=== PATIENT | male | born 1990 | race African-American/Black ===

== ENCOUNTER 2021-07-01 16:52 | Emergency (ER) | payer OTHER, SELFPAY ==
[2021-07-01] VITALS (9 sets, daily range): BP systolic 144–152; BP diastolic 85–108; PULSE 65–98; RESP 14; TEMP 36.8; O2SAT 99–100
--- NOTE | ~2021-07-01 | XR_ITS ---
EXAMINATION: XR chest 2V DATE: 07/01/2021 17:26 INDICATION: Shortness of breath and midsternal chest pain, asthma TECHNIQUE: PA and lateral views of the chest are obtained. COMPARISON: None available FINDINGS: The lungs are free of acute opacities. There is no pleural effusion or pneumothorax. The ca rdiomediastinal silhouette is normal. The visualized bones and soft tissues are unremarkable. IMPRESSION: 1. No acute cardiopulmonary abnormality. Reviewed, dictated and finalized at location A.
--- NOTE | 2021-07-01 17:09 | ECG_ITS ---
Measurements Intervals [place] Rate: 89 P: 77 AL: 127 QRS: 72 QRSD: 79 T: 59 QT: 327 QTc: 400 Interpretive Statements SINUS RHYTHM WITH SINUS ARRHYTHMIA INCOMPLETE RIGHT BUNDLE BRANCH BLOCK ST ELEVATION IN ANTEROLAT/INF LEADS, PROBABLY EARLY REPOLARIZATION BORDERLINE ECG Electronically Signed On 07-01-2021 19:47:49 CDT by Florencio Valdovinos D.O.
[2021-07-01 17:31] LABS: Basophils Percent Auto 0.4 % (0.2-1.2); Eosinophils Absolute Auto 0.4 K/mm3 (0-0.3); Eosinophils Percent Auto 6.7 % (0-4.4); Hematocrit 44.8 % (42.0-52.0); Hemoglobin 15.9 g/dL (14.0-18.0); Immature Granulocyte Absolute 0.02 K/mm3 (0.00-0.031); Immature Granulocyte Percent A 0.4 % (0-0.5); Lymphocytes Absolute Auto 1.16 K/mm3 (0.9-3.2); Lymphocytes Percent Auto 22.1 % (18.3-44.2); Mean Corpuscular HGB Conc 35.5 g/dl (32-36); Mean Corpuscular Hemoglobin 32.9 pg (26-34); Mean Corpuscular Volume 92.6 fl (80-100); Monocytes Absolute Auto 0.7 K/mm3 (0.1-0.6); Monocytes Percent Auto 12.9 % (2.6-8.5); Neutrophils Percent Auto 57.5 % (45.5-73.1); Platelet Count Result 160 k/mm3 (150-375); Red Blood Count 4.84 M/mm3 (4.6-6.20); Red Cell Distribution Width 10.9 % (11.5-14.5); White Blood Count 5.3 K/mm3 (4.5-10.0)
[2021-07-01 17:42] LABS: Anion Gap 8 mmol/L (8-16); Blood Urea Nitrogen 13 mg/dL (9-20); Calcium 9.3 mg/dL (8.4-10.2); Carbon Dioxide 29 mmol/L (22-30); Chloride 102 mmol/L (98-107); Estimated CRCL calculation 87 ml/min; Estimated Glomerular Filt Rate > 60; Glucose 105 mg/dL (65-110); Potassium 4.4 mmol/L (3.4-5.0); Sodium 139 mmol/L (137-145)
[2021-07-01 17:54] LABS: Troponin I < 0.012 ng/mL (0.000-0.034)
--- NOTE | 2021-07-01 19:10 | ED.ASTHMA ---
HPI - Asthma General Chief Complaint: Asthma Stated Complaint: asthma Time Seen by Provider: 07/01/21 19:02 Source: RN notes reviewed History of Present Illness HPI Narrative: Patient presents emergency department from home for asthma. Patient states he has history of asthma is been using inhaler at home but continued to have wheezing and feeling short of breath. He states that symptoms of worsened over the past 2 days states the cough this been nonproductive he denies any fevers or chills does note some feeling of chest tightness with his wheezing denies any abdominal pain nausea or vomiting denies any tobacco use Related Data Allergies Allergy/AdvReac Type Severity Reaction Status Date / Time No Known Allergies Allergy Unverified 07/19/18 04:43 Review of Systems Review of Systems: Gen.: Denies fevers or chills ENT: Denies congestion Respiratory: See HPI CV: Reports feeling of chest tightness GI: Denies abdominal pain nausea, emesis or diarrhea Musculoskeletal: Denies back pain or muscle pain Neuro: Denies numbness, tingling, weakness or focal weakness Skin: Denies rash Except as documented, all other systems reviewed and negative [facility] Past Medical History Medical History (Updated 07/01/21 @ 21:06 by Suman Diaz DO) Asthma Social History Social History (Updated 07/01/21 @ 19:11 by Suman Diaz DO) Smoking status: Never smoker Exam Narrative: APPEARANCE: No acute distress, nontoxic, resting in bed EYES: EOMI HEENT: Normocephalic, atraumatic, OMM RESPIRATORY: No respiratory distress wheezing throughout the bilateral lung jacobsen no rhonchi or rales CARDIOVASCULAR: Regular rate and rhythm without murmurs rubs or gallops. ABDOMINAL: Soft, nontender, nondistended, no rebound or guarding MUSCULOSKELETAl: Moves all extremities. No clubbing, cyanosis or edema. NEURO: Awake and alert. Following commands, speech normal, no focal deficits SKIN:: Warm, dry. No rashes lesions or abrasions PSYCHIATRIC: Normal affect/mood, Course Course Emergency Course: Patient states he is feeling much better following breathing treatments repeat lung exam is clear to auscultation bilaterally Discussed with patient results of workup and diagnosis. Discussed need for follow-up with primary care, proper use of medication, and reasons to return to the emergency department. Patient understands and agrees to current treatment plan Vital Signs Vital signs: Vital Signs Temperature 98.2 F 07/01/21 17:07 Pulse Rate 81 07/01/21 17:07 Respiratory Rate 14 07/01/21 17:07 Blood Pressure 144/108 H 07/01/21 17:07 Pulse Oximetry 99 07/01/21 17:07 Temperature 98.2 F 07/01/21 19:29 Pulse Rate 81 07/01/21 20:58 Respiratory Rate 14 07/01/21 19:29 Blood Pressure 144/108 H 07/01/21 19:29 Pulse Oximetry 99 07/01/21 19:29 MDM - Asthma Lab Data Result diagrams: 07/01/21 17:19 07/01/21 17:18 Labs: Lab Results 07/01/21 07/01/21 Range/Units 17:18 17:19 WBC 5.3 (4.5-10.0) K/mm3 RBC 4.84 (4.6-6.20) M/mm3 Hgb 15.9 (14.0-18.0) g/dL Hct 44.8 (42.0-52.0) % MCV 92.6 (80-100) fl MCH 32.9 (26-34) pg MCHC 35.5 (32-36) g/dl RDW 10.9 L (11.5-14.5) % Plt Count 160 (150-375) k/mm3 MPV 11.0 H (7.4-10.4) fl Immature Gran % (Auto) 0.4 (0-0.5) % Neut % (Auto) 57.5 (45.5-73.1) % Lymph % (Auto) 22.1 (18.3-44.2) % [place] % (Auto) 12.9 H (2.6-8.5) % Eos % (Auto) 6.7 H (0-4.4) % Baso % (Auto) 0.4 (0.2-1.2) % Lymph # (Auto) 1.16 (0.9-3.2) K/mm3 [place] # (Auto) 0.7 H (0.1-0.6) K/mm3 Eos # (Auto) 0.4 H (0-0.3) K/mm3 Baso # (Auto) 0.0 (0.0-0.1) K/mm3 Abs Immat Gran (auto) 0.02 (0.00-0.031) K/mm3 Absolute Neuts (auto) 3.0 (1.3-6.7) K/mm3 Absolute Nucleated RBC 0.0 (0.0-0.012) K/mm3 Nucleated RBC % 0.0 (0.0-0.2) % Sodium 139 (137-145) mmol/L Potassium 4.4 (3.4-5.0) mmol/L Chloride 102 (98-107)
[2021-07-01] MEDS: predniSONE 20 MG TABLET 60 MG PO (19:16)
[2021-07-01] MEDS: IPRATROPIUM BR 0.02% INH SOLN 0.5 MG/2.5 ML VIAL INHALATION ×3 (19:23→20:52)
[2021-07-01] MEDS: ALBUTEROL SULFATE NEB 2.5 MG/0.5 ML INH 5 MG INHALATION ×3 (19:23→20:51)
== END 2021-07-01 21:36 | disposition home or self-care (01) ==
PROVIDERS: Emergency Medicine; Emergency Provider Emergency Medicine; PCP Internal Medicine
DX: J45.901 Unspecified asthma with (acute) exacerbation (principal); I45.10 Unspecified right bundle-branch block; R94.31 Abnormal electrocardiogram [ECG] [EKG]
CPT/HCPCS: 36415; 71046; 80048; 84484; 85025; 93005; 94640; 99285; J7512

== ENCOUNTER 2022-06-09 12:04 | Emergency (ER) | payer OTHER, SELFPAY ==
[2022-06-09 12:09] VITALS: BP 129/84; PULSE 77; RESP 16; TEMP 36.7
[2022-06-09] MEDS: ALBUTEROL SULFATE NEB 2.5 MG/3 ML INH 15 MG INHALATION (12:55)
[2022-06-09] MEDS: IPRATROPIUM BR 0.02% INH SOLN 0.5 MG/2.5 ML VIAL 1.5 MG INHALATION (12:55)
[2022-06-09 13:00] VITALS: PULSE 74; RESP 20
[2022-06-09] MEDS: predniSONE 20 MG TABLET 60 MG PO (13:01)
[2022-06-09 13:56] VITALS: BP 138/84; PULSE 67; RESP 18; O2SAT 100
--- NOTE | 2022-06-09 14:02 | ED.SOB ---
HPI - SOB/Dyspnea General Chief Complaint: Shortness of Breath/Dyspnea Stated Complaint: sob, asthma Time Seen by Provider: 06/09/22 12:28 History of Present Illness HPI Narrative: Patient is a 31-year-old male who presents ER with shortness of breath. Began last night worsening throughout the day. Has history of asthma feels like he is having exacerbation. He can hear wheezing. He has been using his inhaler but has run out. No fevers chills or sweats. No runny nose or sore throat or cough. Feels like it is weather change that is affecting him.. Related Data Allergies Allergy/AdvReac Type Severity Reaction Status Date / Time No Known Allergies Allergy Verified 06/09/22 12:18 [facility] Past Medical History Medical History (Updated 06/09/22 @ 14:04 by Aba Barron MD) Asthma Surgical History Surgical History (Updated 06/09/22 @ 14:04 by Aba Barron MD) No pertinent past surgical history Social History Social History (Updated 07/01/21 @ 19:11 by Suman Diaz DO) Smoking status: Never smoker Exam Narrative: GENERAL: Well-appearing, well-nourished, and in no acute distress. HEAD: Normocephalic, atraumatic. CHEST: Diffuse expiratory and inspiratory wheezing. No respiratory distress. HEART: Regular rate and rhythm. Normal peripheral pulses. EXTREMITIES: Normal range of motion. No edema. SKIN: Warm, dry, no rash. NEURO: No focal deficits. Alert and oriented x3. PSYCH: Normal mood and affect. Course Course Emergency Course: Lungs clear and patient feels improved after hour-long nebulizer treatment. Discharged with refill of medication and steroids. Vital Signs Vital signs: Vital Signs Temperature 98.0 F 06/09/22 12:09 Pulse Rate 77 06/09/22 12:09 Respiratory Rate 16 06/09/22 12:09 Blood Pressure 129/84 06/09/22 12:09 Oxygen Delivery Room Air 06/09/22 12:09 Temperature 98.0 F 06/09/22 12:09 Pulse Rate 67 06/09/22 13:56 Respiratory Rate 18 06/09/22 13:56 Blood Pressure 138/84 06/09/22 13:56 Pulse Oximetry 100 06/09/22 13:56 Oxygen Delivery Room Air 06/09/22 12:09 Discharge Plan Discharge Clinical Impression: Asthma with exacerbation Patient Disposition: Home, Self-Care Condition: Stable Instructions: Asthma (ED) Additional Instructions: Return the ER if you have worsening shortness of breath, you cannot keep down food or water, you have fever over 100.4 ?F, you have additional concerns Prescriptions: New prednisone 50 mg tablet 50 mg PO DAILY Qty: 6 0RF albuterol sulfate 90 mcg/actuation HFA aerosol inhaler 4 puff INHALATION QID PRN (Reason: shortness of breath or wheezing) Qty: 8 0RF No Action prednisone 20 mg tablet 20 mg PO BID Qty: 8 0RF albuterol sulfate 90 mcg/actuation HFA aerosol inhaler 2 puff INHALATION QID PRN (Reason: shortness of breath or wheezing) Qty: 6.7 0RF Follow-up/Referrals: Karen,Josue Pearl MD [Primary Care Provider] - 1 Week
[2022-06-09 14:09] VITALS: BP 129/76; PULSE 74; RESP 18; O2SAT 98
== END 2022-06-09 14:10 | disposition home or self-care (01) ==
PROVIDERS: Emergency Provider Emergency Medicine; PCP Internal Medicine
DX: J45.901 Unspecified asthma with (acute) exacerbation (principal)
CPT/HCPCS: 94640; 99283; J7512

== ENCOUNTER 2022-07-12 23:23 | Emergency (ER) | payer OTHER, SELFPAY ==
--- NOTE | ~2022-07-12 | XR_ITS ---
EXAMINATION: XR chest 2V DATE: 07/13/2022 02:19 INDICATION: Shortness of breath. Wheezing. TECHNIQUE: Frontal and lateral views of the chest were obtained. COMPARISON: Chest 2 views 07/01/2021 FINDINGS: The chest demonstrates clear lungs without pneumonia, pleural effusion, or pneumothorax. Th e heart size is normal. IMPRESSION: 1. No acute cardiopulmonary disease. Reviewed, dictated and finalized at location A.
[2022-07-12 23:30] VITALS: BP 148/91; PULSE 72; RESP 20; TEMP 36.3; O2SAT 99
[2022-07-13] VITALS (10 sets, daily range): BP systolic 131–141; BP diastolic 87–94; PULSE 55–87; RESP 12–19; O2SAT 96–100
--- NOTE | 2022-07-13 01:44 | ED.SOB ---
HPI - SOB/Dyspnea General Chief Complaint: Shortness of Breath/Dyspnea Stated Complaint: wheezing Time Seen by Provider: 07/13/22 01:44 History of Present Illness HPI Narrative: Patient is a 31-year-old male with a history of asthma presenting with shortness of breath. Patient states that several days ago he felt like his asthma was acting up. States that this often happens at this time of year. States that he has been treating himself at home with nebulizer treatments but he has not had much improvement. He called his PCP earlier today who advised that he come to the ER if he continues to worsen. Patient states that he tried another nebulizer this evening but continued to have a lot of wheezing so he came in for evaluation. Patient complains of chest tightness but denies chest pain. Denies fevers, headache, palpitations, abdominal pain, nausea or vomiting, diarrhea, leg swelling. States he is vaccinated for COVID-19 and his flu shot is up-to-date. Related Data Allergies Allergy/AdvReac Type Severity Reaction Status Date / Time No Known Allergies Allergy Verified 07/12/22 23:25 Review of Systems Review of Systems: All systems reviewed & are unremarkable except as noted in HPI and below PMFSH Past Medical History Medical History Asthma Surgical History Surgical History No pertinent past surgical history Social History Social History Smoking status: Never smoker Exam Narrative: GENERAL: Well-appearing, well-nourished, and in no acute distress. HEAD: Normocephalic, atraumatic. EYES: PERRLA and EOMI. ENT: Nares clear, no rhinorrhea or epistaxis. Mucous membranes moist. NECK: Supple. CHEST: Wheezing bilaterally with diminished breath sounds in the bases, no respiratory distress. HEART: Regular rate and rhythm. No murmur heard. Normal peripheral pulses. ABDOMEN: Soft, nontender, nondistended, normal active bowel sounds. EXTREMITIES: Normal range of motion. No edema. SKIN: Warm, dry, no rash. NEURO: No focal deficits. Alert and oriented x3. PSYCH: Normal mood and affect. Course Course Emergency Course: Patient is a 31-year-old male presenting with shortness of breath and wheezing. Vitals are within normal limits. Exam remarkable for the above. Blood work unremarkable. Patient feels improved after breathing treatments and steroids. Will provide prescription for steroid burst and a new inhaler. Recommended he follow-up with his PCP and pulmonology. Strict return precautions were given. Patient voiced understanding and is agreeable with plan. Discharged in stable condition. Vital Signs Vital signs: Vital Signs Temperature 97.3 F L 07/12/22 23:30 Pulse Rate 72 07/12/22 23:30 Respiratory Rate 20 07/12/22 23:30 Blood Pressure 148/91 H 07/12/22 23:30 Pulse Oximetry 99 07/12/22 23:30 Oxygen Delivery Room Air 07/12/22 23:30 Temperature 97.3 F L 07/12/22 23:30 Pulse Rate 67 07/13/22 06:30 Respiratory Rate 14 07/13/22 06:30 Blood Pressure 131/88 07/13/22 06:30 Pulse Oximetry 96 07/13/22 06:30 Oxygen Delivery Room Air 07/13/22 05:48 MDM - SOB/Dyspnea Lab Data Result diagrams: 07/13/22 01:59 07/13/22 01:59 Labs: Lab Results 07/13/22 07/13/22 07/13/22 Range/Units 01:59 01:59 03:46 WBC 3.6 L (4.5-10.0) K/mm3 RBC 4.29 L (4.6-6.20) M/mm3 Hgb 13.9 L (14.0-18.0) g/dL Hct 40.2 L (42.0-52.0) % MCV 93.7 (80-100) fl MCH 32.4 (26-34) pg MCHC 34.6 (32-36) g/dl RDW 11.1 L (11.5-14.5) % Plt Count 137 L (150-375) k/mm3 MPV 10.9 H (7.4-10.4) fl Immature Gran % (Auto) 0.3 (0-0.5) % Neut % (Auto) 26.3 L (45.5-73.1) % Lymph % (Auto) 51.5 H (18.3-44.2) % [place] % (Auto) 9.7 H (2.6-8.5) % Eos % (Auto) 11.4 H
[2022-07-13 02:09] LABS: Basophils Percent Auto 0.8 % (0.2-1.2); Eosinophils Absolute Auto 0.4 K/mm3 (0-0.3); Eosinophils Percent Auto 11.4 % (0-4.4); Hematocrit 40.2 % (42.0-52.0); Hemoglobin 13.9 g/dL (14.0-18.0); Immature Granulocyte Absolute 0.01 K/mm3 (0.00-0.031); Immature Granulocyte Percent A 0.3 % (0-0.5); Immature Platelet Fraction Pct 7.2 % (0.9-11.2); Lymphocytes Absolute Auto 1.86 K/mm3 (0.9-3.2); Lymphocytes Percent Auto 51.5 % (18.3-44.2); Mean Corpuscular HGB Conc 34.6 g/dl (32-36); Mean Corpuscular Hemoglobin 32.4 pg (26-34); Mean Corpuscular Volume 93.7 fl (80-100); Mean Platelet Volume 10.9 fl (7.4-10.4); Monocytes Absolute Auto 0.4 K/mm3 (0.1-0.6); Monocytes Percent Auto 9.7 % (2.6-8.5); Neutrophils Percent Auto 26.3 % (45.5-73.1); Platelet Count Result 137 k/mm3 (150-375); Red Blood Count 4.29 M/mm3 (4.6-6.20); Red Cell Distribution Width 11.1 % (11.5-14.5); White Blood Count 3.6 K/mm3 (4.5-10.0)
[2022-07-13 02:14] LABS: Alanine Aminotransferase 19 U/L (6-50); Albumin Level 4.2 g/dL (3.5-5.1); Alkaline Phosphatase 54 U/L (38-126); Anion Gap 9 mmol/L (8-16); Aspartate Amino Transferase 28 U/L (17-59); Bilirubin,Total 0.6 mg/dL (0.2-1.3); Blood Urea Nitrogen 11 mg/dL (9-20); Calcium 8.6 mg/dL (8.4-10.2); Carbon Dioxide 26 mmol/L (22-30); Chloride 104 mmol/L (98-107); Estimated CRCL calculation 80 ml/min; Estimated Glomerular Filt Rate > 60; Glucose 91 mg/dL (65-110); Potassium 3.6 mmol/L (3.4-5.0); Sodium 139 mmol/L (137-145)
[2022-07-13] MEDS: ALBUTEROL SULFATE NEB 2.5 MG/3 ML INH 10 MG INHALATION ×2 (02:38→05:19)
[2022-07-13] MEDS: IPRATROPIUM BR 0.02% INH SOLN 0.5 MG/2.5 ML VIAL INHALATION (02:39)
[2022-07-13] MEDS: methylPREDNISolone SOD SUCC 125 MG VIAL IV PUSH (02:41)
[2022-07-13 04:29] LABS: Influenza A QL RT-PCR Negative (Negative); Influenza B QL RT-PCR Negative (Negative); SARS-CoV-2 RNA PCR Negative
== END 2022-07-13 06:30 | disposition home or self-care (01) ==
PROVIDERS: Emergency Provider Emergency Medicine; PCP Internal Medicine
DX: J45.901 Unspecified asthma with (acute) exacerbation (principal); Z20.822 Contact with and (suspected) exposure to COVID-19
CPT/HCPCS: 36415; 71046; 80053; 85025; 85055; 87502; 94640; 96374; 99284; C9803; J2930; U0003; U0005

== ENCOUNTER 2022-12-15 16:41 | Emergency (ER) | payer OTHER, SELFPAY ==
--- NOTE | ~2022-12-15 | XR_ITS ---
EXAMINATION: XR chest 2V Exam Date/Time: 12/15/2022 17:00 CDT HISTORY: asthma flare up? DYSPNEA SOB X 2 DAYS MULT USE OF INHALE/NEB Comparison: 07/13/2022. RESULT: Lines, tubes, and devices: None. Lungs and pleura: Clear. Cardiomediastinal silhouette: Stable. Other: No acute osseous or upper abdominal finding. IMPRESSION: No acute cardiopulmonary process. Reviewed, dictated and finalized at location K.
[2022-12-15 16:55] VITALS: BP 132/94; PULSE 85; RESP 16; TEMP 36.6; O2SAT 96
--- NOTE | 2022-12-15 19:59 | ED.ASTHMA ---
HPI - Asthma General Chief Complaint: Asthma Stated Complaint: asthma Time Seen by Provider: 12/15/22 19:41 History of Present Illness HPI Narrative: Patient is a 32-year-old male with a history of asthma presenting with asthma exacerbation. Patient states that starting since last night he has been feeling more short of breath than normal. States that he woke up this morning with chest tightness and wheezing. States that he has been using his inhaler throughout the day with minimal relief. States that he has had symptoms of seasonal allergies and he often has exacerbations during spring and fall. Denies fevers, lightheadedness, palpitations, abdominal pain, nausea or vomiting, diarrhea, leg swelling. Related Data Allergies Allergy/AdvReac Type Severity Reaction Status Date / Time No Known Allergies Allergy Verified 12/15/22 16:57 Review of Systems Review of Systems: All systems reviewed & are unremarkable except as noted in HPI and below PMFSH Past Medical History Medical History Asthma Surgical History Surgical History No pertinent past surgical history Social History Social History Smoking status: Never smoker Exam Narrative: GENERAL: Well-appearing, well-nourished, and in no acute distress. Pleasant and cooperative HEAD: Normocephalic, atraumatic. EYES: PERRLA and EOMI. ENT: Nares clear, no rhinorrhea or epistaxis. Mucous membranes moist. NECK: Supple. CHEST: Diffuse expiratory wheezing, no crackles, no respiratory distress HEART: Regular rate and rhythm. Normal peripheral pulses. ABDOMEN: Soft, nontender, nondistended EXTREMITIES: Normal range of motion. No edema. SKIN: Warm, dry, no rash. NEURO: No focal deficits. Alert and oriented x3. PSYCH: Normal mood and affect. Course Vital Signs Vital signs: Vital Signs Temperature 97.9 F 12/15/22 16:55 Pulse Rate 85 12/15/22 16:55 Respiratory Rate 16 12/15/22 16:55 Blood Pressure 132/94 H 12/15/22 16:55 Pulse Oximetry 96 12/15/22 16:55 Temperature 97.9 F 12/15/22 16:55 Pulse Rate 80 12/15/22 22:52 Respiratory Rate 16 12/15/22 22:52 Blood Pressure 112/62 12/15/22 22:52 Pulse Oximetry 98 12/15/22 22:52 Oxygen Delivery Room Air 12/15/22 22:30 MDM - Asthma MDM Narrative Medical decision making narrative: Patient is a 32-year-old male presenting with concerns for asthma exacerbation. Vitals within normal limits. Saturating well on room air. Exam is concerning for bilateral wheezing. Chest x-ray shows no acute abnormalities. No focal consolidations, pneumothorax, effusions. We will test him for COVID and influenza. We will start hour-long breathing treatment and give steroids. Patient negative for COVID and influenza. On reevaluation, the patient reports significant improvement in his symptoms. On exam, his wheezing has resolved. Vitals remained within normal limits. Patient is asking to go home which I think is reasonable. Provided prescription for Medrol Dosepak and new inhaler. Advised PCP follow-up. Appropriate return precautions given. Patient voiced understanding and is agreeable with plan. Discharged in stable condition. Differential Diagnosis Differential diagnosis: Likely Pneumonia, Pneumothorax and other (asthma exacerbation) Lab Data Labs: Lab Results 12/15/22 Range/Units 20:09 Influenza A (RT-PCR) Negative (Negative) Influenza B (RT-PCR) Negative (Negative) RSV (RT-PCR) Negative (Negative) SARS-CoV-2 RNA (RT-PCR) Negative Critical Care Time Critical Care Time Critical Care Time: No Discharge Plan Discharge Clinical Impression: Asthma with acute exacerbation Patient Disposition: Home, Self-Care Condition: Stable Instructions: Antibiotic Form, Asthma (ED) Additional Instr
[2022-12-15] MEDS: IPRATROPIUM BR 0.02% INH SOLN 0.5 MG/2.5 ML VIAL INHALATION (20:24)
[2022-12-15] MEDS: ALBUTEROL SULFATE NEB 2.5 MG/3 ML INH 10 MG INHALATION (20:24)
[2022-12-15 20:28] VITALS: PULSE 87; RESP 18
[2022-12-15 21:04] LABS: Influenza A QL RT-PCR Negative (Negative); Influenza B QL RT-PCR Negative (Negative); RSV RNA, RT-PCR Negative (Negative); SARS-CoV-2 RNA PCR Negative
[2022-12-15 22:52] VITALS: BP 112/62; PULSE 80; RESP 16; O2SAT 98
== END 2022-12-15 22:54 | disposition home or self-care (01) ==
PROVIDERS: Emergency Provider Emergency Medicine; PCP Internal Medicine
DX: J45.901 Unspecified asthma with (acute) exacerbation (principal); Z20.822 Contact with and (suspected) exposure to COVID-19
CPT/HCPCS: 71046; 87637; 94640; 96372; 99284; J1100